=== PATIENT | female | born 1980 ===

== ENCOUNTER 2023-06-02 05:24 | Day surgery (SDC) | payer OTHER ==
[2023-05-27 16:15] LABS: COL EPI 80 SECONDS (82-175)
[2023-06-02] MEDS ORDERED: CIPROFLOXACIN IN 5 % DEXTROSE 400 MG/200 ML PIGGYBAG IV ONE ×2 (07:46→08:15)
== END 2023-06-02 11:20 | disposition home or self-care (01) ==
LOC: CIR.AMB 05:24
PROVIDERS: ATTEND Obstetrics & Gynecology Gynecology
DX: N88.8 Other specified noninflammatory disorders of cervix uteri (principal); Z88.0 Allergy status to penicillin; Z88.6 Allergy status to analgesic agent